=== PATIENT | female | born 1995 | race Caucasian/White ===

== ENCOUNTER 2017-05-17 14:12 | Emergency (ER) | payer BC, MEDICAID ==
[~2017-05-17] VITALS: Wt 55.9 kg
--- NOTE | 2017-05-17 14:57 | ERD ---
ER Documentation Chief Complaint Date/Time DATE: 05/17/17 Chief Complaint Vaginal bleeding HPI The patient is a 22-year-old female, A0, who presents to the Emergency Department with complaint of vaginal bleeding. The patient reports that in December 2016 she had the Nexplanon contraceptive implant placed to her left upper extremity. Since it's placement, she has been experiencing irregular vaginal bleeding, with no regular menstrual periods. She was informed, upon insertion of the Nexplanon device, that this was a possible side effect. However , over the past month, she has been experiencing vaginal bleeding daily, with intermittent lower abdominal cramping, nausea and some vomiting. Due to the persistent bleeding, which she attributed to the Nexplanon device, she decided to return to her BILL CLERK's office, Dr. Delgado, to request Nexplanon removal. Upon arrival today, a urine test was performed, and determined to be positive. Therefore, the patient was referred to the Emergency Department for further evaluation. She denies any fevers, sweats, chills. Denies dysuria or flank pain. Denies chest pain, shortness of breath, lower extremity swelling, headache, dizziness, weakness/ She does admit to vaginal spotting at this time, though with no passage of clots or tissue. Patient notes that this is not a desired , and she plans to [facility] to discuss options for . No other complaints at this time. ROS All systems reviewed and are negative except as per history of present illness. 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 HEENT: Head is normocephalic, atraumatic. No scleral pallor or icterus. Pupils equal, round and reactive to light. Conjunctiva pink. Moist mucous membranes. NECK: Supple. Full range of motion. RESPIRATORY: Lungs are clear to auscultation bilaterally. Equal breath sounds. Normal expiratory effort. CARDIOVASCULAR: Regular rate and rhythm. S1 and S2 normal. GASTROINTESTINAL: Abdomen is soft, nontender, and nondistended. No guarding, no rebound tenderness. Normal bowel sounds. No gross peritonitis. FLANK: No CVA tenderness, no mass or swelling. BACK: No midline tenderness. EXTREMITIES: No clubbing, cyanosis, or edema. Normal skin perfusion. Moving all extremities. Muscle tone is normal. No focal swelling or erythema. NEUROLOGIC: The patient is alert, awake, and oriented x 3. No focal neurologic deficits. INTEGUMENT: Skin is clean, dry and intact. No rashes, lesions or petechiae present. PSYCHIATRIC: Appropriate; Cooperative. Result Diagram: 05/17/17 1500 Results 24 hrs Laboratory Tests Test 05/17/17 15:00 White Blood Count 15.610^3/ul Red Blood Count 5.1310^6/ul Hemoglobin 11.5g/dl Hematocrit 37.1% Mean Corpuscular Volume 72.3fl Mean Corpuscular Hemoglobin 22.4pg Mean Corpuscular Hemoglobin Concent 31.0g/dl Red Cell Distribution Width 16.4% Platelet Count 57501^3/UL Mean Platelet Volume 11.3fl Neutrophils % 80.2% Lymphocytes % 13.9% Monocytes % 4.3% Eosinophils % 0.8% Basophils % 0.2% Nucleated Red Blood Cells % 0.0/100WBC Neutrophils # 12.510^3/ul Lymphocytes # 2.210^3/ul Monocytes # 0.710^3/ul Eosinophils # 0.110^3/ul Basophils # 0.010^3/ul Nucleated Red Blood Cells # 0.010^3/ul Urine Color YELLOW Urine Clarity SLIGHTLY CLOUDY Urine pH 5.0 Urine Specific [place] 1.025 Urine Ketones 2+mg/dL Urine Nitrite NEGATIVEmg/dL Urine Bilirubin NEGATIVEmg/dL Urine Urobilinogen NEGATIVEmg/dL Urine Leukocyte Esterase NEGATIVELeu/ul Urine Microscopic RBC 3/HPF Urine Microscopic WBC 2/HPF Urine Mucus MANY/HPF Urine Hemoglobin NEGATIVEmg/dL Urine Glucose NEGATIVEmg/dL Urine Total Protein 1+mg/dl Beta HCG, Quantitative 56591.0mIU/ml Procedures/[facility] EMERGENCY DEPARTMENT COURSE: The patient was stable throughout the ED course. Laboratory testing and ultrasound imaging performed. Discussed possibility for Nexplanon removal in the ED, to be performed by myself. Discussed with patient' s the teratogenic risk of keeping the Nexplanon in, especially if she determines that this is a desired . Offered removal to her, and significant other at bedside, but patient declined, stating that she will follow up tomorrow for it's removal as an outpatient. Patient was requesting information for [facility], which was provided, including all locations within a 20-mile radius. After rest, the patient reports no new complaints. DIAGNOSTIC TESTS AND INTERPRETATION: PROCEDURE: OB Ultrasound. CLINICAL INDICATION: Positive test. Uncertain size and dates. TECHNIQUE: Ultrasound of the pelvis was performed with transabdominal sonography in the axial and sagittal planes. COMPARISON: No prior study is available for comparison. FINDINGS: There is a single intrauterine gestational sac. pole and yolk sac are present. There is heart motion. heart rate is 148 beats per minute. [place]-rump length is 8.60 cm. Menstrual age by ultrasound dates is 14 weeks 4 days. This indicates an expected date of delivery of 11/11/2017. The ovaries are not visualized. There is no other pelvic mass or free fluid. IMPRESSION: 1. Single live intrauterine gestation of 14 weeks 4 days menstrual age by ultrasound dates. 2. Expected date of delivery is 11/11/2017. .Wayne Murillo MD, MD Date Time Electronically viewed and signed by .Wayne Murillo MD, MD on 05/17/2017 15:28 The possibility of threatened was discussed with the patient and she was told to follow up with her BILL CLERK within 2-3 days for re-evaluation. The patient complies and agrees with plan. MEDICAL DECISION MAKING: This is a 22-year-old female presenting to the Emergency Department complaining of vaginal bleeding. She had no significant abnormalities noted on physical examination. Differential diagnosis includes, but is not limited to, ectopic , cervicitis, fibroids, molar , implantation bleeding, heterotopic , septic , missed , incomplete , inevitable , threatened , complete , coagulopathy, fibroids, adenomyosis, endometriosis, neoplasia , vaginitis, PID, vaginal trauma, dysfunctional uterine bleeding. No severe anemia noted on testing ordered. Beta hCG is 15,246. Rh (+), no indication for RhoGAM. Ultrasound performed revealed an intrauterine gestation of 14 weeks 4 days. After rest, the patient reports no new complaints. Upon review and interpretation of the patient's presentation and overall ER course, I believe the patient's symptoms are most consistent with threatened and vaginal bleeding in a patient of less than 20 weeks gestation. At this time the patient patient is in stable condition with and therefore she be discharged home with strict return precautions for signs of deteriorating or worsening condition. The patient is advised to follow up with her BILL CLERK within 2-3 days for reevaluation and further management, or return to the ER sooner for any worsening symptoms. I shared all laboratory and diagnostic imaging studies with the patient at length and in great detail, and the patient verbally understands and agrees with the plan for further observation and care as an outpatient. At the time of discharge, all questions were answered. Departure Diagnosis: Primary Impression: Vaginal bleeding in patient at less than 20 weeks gestation Additional Impression: Threatened Condition: Stable Patient Instructions: Bleeding During Early , Possible Miscarriage ( Threatened ) Additional Instructions: Follow up with an BILL CLERK for reevaluation and further management. As discussed, having the Nexplanon is teratogenic. You deferred removal today in the ED, and therefore it is your responsibility to follow up with your own BILL CLERK to have it removed. Return to the ED sooner for any new or worsening symptoms. GABBI BYRD PA-C May 17, 2017 14:57
[2017-05-17 15:10] LABS: ADD SCAN DIFF NO
[2017-05-17 15:23] LABS: ADD UMIC YES; UR ASCORBIC ACID 40 mg/dL (NEGATIVE); UR BILIRUBIN (Dip) NEGATIVE (NEGATIVE); UR BLOOD (Dip) NEGATIVE (NEGATIVE); UR CLARITY SLIGHTLY CLOUDY (CLEAR); UR COLOR YELLOW (YELLOW); UR GLUCOSE (Dip) NEGATIVE (NEGATIVE); UR KETONES (Dip) 2+ mg/dL (NEGATIVE); UR LEUKOCYTE ESTERASE (Dip) NEGATIVE Leu/ul (NEGATIVE); UR MUCUS MANY /HPF (NONE SEEN); UR NITRITE (Dip) NEGATIVE (NEGATIVE); UR RBC 3 /HPF (0-5); UR SPECIFIC GRAVITY (Dip) 1.025 (1.003-1.030); UR TOTAL PROTEIN (Dip) 1+ mg/dl (NEGATIVE); UR UROBILINOGEN (Dip) NEGATIVE (NEGATIVE)
[2017-05-17 15:24] LABS: BASOPHILS % 0.2 % (0.0-2.0); EOSINOPHILS # 0.1 10^3/ul (0.0-0.5); EOSINOPHILS % 0.8 % (0.0-7.0); HEMATOCRIT 37.1 % (37.0-47.0); HEMOGLOBIN 11.5 g/dl (12.0-16.0); LYMPHOCYTES # 2.2 10^3/ul (0.8-2.9); LYMPHOCYTES % 13.9 % (18.0-55.0); MEAN CORPUSCULAR HEMOGLOBIN 22.4 pg (29.0-33.0); MEAN CORPUSCULAR VOLUME 72.3 fl (72.0-104.0); MEAN PLATELET VOLUME 11.3 fl (7.4-10.4); MONOCYTE # 0.7 10^3/ul (0.3-0.9); MONOCYTES % 4.3 % (0.0-13.0); NEUTROPHIL # 12.5 10^3/ul (1.6-7.5); NEUTROPHILS % 80.2 % (30.0-74.0); PLATELET COUNT 330 10^3/UL (140-415); RED BLOOD COUNT 5.13 10^6/ul (4.20-5.40); RED CELL DISTRIBUTION WIDTH 16.4 % (11.5-14.5); WHITE BLOOD COUNT 15.6 10^3/ul (4.8-10.8)
--- NOTE | 2017-05-17 15:28 | RADRPT ---
PROCEDURE: OB Ultrasound. CLINICAL INDICATION: Positive test. Uncertain size and dates. TECHNIQUE: Ultrasound of the pelvis was performed with transabdominal sonography in the axial and sagittal planes. COMPARISON: No prior study is available for comparison. FINDINGS: There is a single intrauterine gestational sac. pole and yolk sac are present. There is heart motion. heart rate is 148 beats per minute. [place]-rump length is 8.60 cm. Menstrual age by ultrasound dates is 14 weeks 4 days. This indicates an expected date of delivery of 11/11/2017. The ovaries are not visualized. There is no other pelvic mass or free fluid. IMPRESSION: 1. Single live intrauterine gestation of 14 weeks 4 days menstrual age by ultrasound dates. 2. Expected date of delivery is 11/11/2017. RPTAT: QQ .Wayne Murillo MD, Date Time Electronically viewed and signed by .Wayne Murillo MD, on 05/17/2017 15:28 .R/
[2017-05-17] MEDS ORDERED: ACET500C5 PO (16:03)
[2017-05-17 16:11] VITALS: BP 135/82; PULSE 110; RESP 16; TEMP 98.4
== END 2017-05-17 16:11 | disposition home or self-care (01) ==
LOC: FTE 14:12
DX: O20.0 Threatened abortion (principal); O99.332 Smoking (tobacco) complicating pregnancy, second trimester; F17.210 Nicotine dependence, cigarettes, uncomplicated; Z3A.14 14 weeks gestation of pregnancy
CPT/HCPCS: 36415; 76801; 81001; 84702; 85025; 86900; 86901; Z7502